=== PATIENT | male | born 1950 | race Caucasian/White ===

== ENCOUNTER 2020-04-28 21:14 | Emergency (ER) | payer BC ==
[2020-04-28] MEDS: Sodium Chloride 0.9% 10 ML Syringe FLUSH PRN ×3 (21:16→21:22)
[2020-04-28] MEDS ORDERED: EPINEPHrine 1:10,000 1 MG/10 ML Syringe IVPUSH ONE ×3 (21:16→21:22)
--- NOTE | 2020-04-29 17:06 | EDM.PDOC ---
ED HPI GENERAL MEDICAL PROBLEM - General Chief Complaint: CPR in Progress Stated Complaint: UNRESPONSIVE Time Seen by Provider: 04/28/20 21:15 Source of Information: Reports: EMS, Family History Limitations: Reports: No Limitations - History of Present Illness INITIAL COMMENTS - FREE TEXT/NARRATIVE: Patient is a 69 YO WM who was found unresponsive at about 1999 on 04/28/2020. He was apparently exercising in the basement and then the went upstairs 30 minutes later went downstairs and found Abdias unresponsive. She then called 911 and started CPR. EMS arrived at the scene 15 minutes later and patient was cyanotic and with a PEA heart rhythm . CPR, epinephrine, ans 1 shock was given en route to [facility] ED. When patient arrived in the ED he was on asystole, with fixed and dilated pupil. CPR, epinephrine, intubation was performed and resuscitation was continued for 30 more minutes. Total resuscitation effort was 1 hour from the time patient was found unresponsive. See [facility] notes for details of resuscitation in the ED, [employer] notes for intubation. 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: Reports: CPR, Intubation, IV/IO, Other Medication(s), Oxygen, See EMS Report, Other (see below) Other 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: 1shock, rTib-IO,NS 2epi - Related Data Allergies Allergy/AdvReac Type Severity Reaction Status Date / Time No Known Allergies Allergy Verified 09/18/14 09:09 Home Meds: Home Meds PARoxetine HCl [Paroxetine HCl] 20 mg PO DAILY 09/18/14 [History] ED ROS GENERAL - Review of Systems Review Of Systems: Unable To Obtain Reason Not Obtained: patient is unresponsive Constitutional: Reports: No Symptoms ED EXAM, CPR - Physical Exam Exam: See Below Limited By: Unresponsive General Appearance: Other Eye Exam: Bilateral Eye: Other (pupils are fexed,dilated, and non-reactive) Head: Atraumatic Respiratory Chest: Other (Absen BS, no spontaneous breathing) Cardiovascular: Other (Pulseless, no audible heart beat) GI/Abdominal Exam: Other (absent bowel sound) Extremities: Other (cold,clammy, cyanotic) Course - Vital Signs Text/Narrative:: see HPI for details of resuscitation - Orders/Labs/Meds Labs: Laboratory Tests 04/28/20 04/28/20 04/28/20 Range/Units 21:25 21:25 21:25 WBC 7.7 (3.2-10.1) x10-3/uL RBC 4.57 (3.90-5.90) x10(6)uL Hgb 13.0 (12.9-17.7) g/dL Hct 40.5 (38.3-50.1) % MCV 88.8 (80.8-98.7) fL MCH 28.5 (27.0-33.3) pg MCHC 32.1 (28.7-35.3) g/dL RDW 13.8 (12.4-15.0) % Plt Count 201 (117-477) x10(3)uL MPV 7.2 (6.7-11.0) fL Neut % (Auto) 27.3 L (40.3-71.8) % Lymph % (Auto) 65.1 H (15.8-45.3) % Luce % (Auto) 6.9 (5.5-15.2) % Eos % (Auto) 0.5 (0.1-6.8) % Baso % (Auto) 0.2 L (0.3-3.8) % Neut # (Auto) 2.1 (1.7-6.9) x10-3/uL Lymph # (Auto) 5.0 H (0.5-4.5) x10-3/uL Luce # (Auto) 0.5 (0.0-1.2) x10-3/uL Eos # (Auto) 0.0 (0.0-0.6) x10-3/uL Baso # (Auto) 0.0 (0.0-0.3) x10-3/uL PT (9.0-11.1) sec INR (1.00-1.24) APTT (24.4-33.2) SECONDS D-Dimer, Quantitative (0.0-0.59) mg/LFEU Sodium 144 (135-145) mmol/L Potassium 5.5 H D (3.5-5.3) mmol/L Chloride 103 (100-110) mmol/L Carbon Dioxide 23 (21-32) mmol/L BUN 13 (7-18) mg/dL Creatinine 1.1 (0.70-1.30) mg/dL Est Cr Clr Drug Dosing TNP Estimated GFR (MDRD) > 60 (>60) BUN/Creatinine Ratio 11.8 (9-20) Glucose 159 H (80-116) mg/dL Calcium 9.5 (8.6-10.2) mg/dL Total Bilirubin 0.9 (0.1-1.3) mg/dL AST 425 H* D (5-25) IU/L ALT 464 H* D (12-36) U/L Alkaline Phosphatase 60 (56-112) IU/L Troponin I 440.7 H* (4.0-60.3) pg/mL Total Protein 6.3 (6.0-8.0) g/dL Albumin 3.3 (3.2-4.6) g/dL Globulin 3.0 g/dL Albumin/Globulin Ratio 1.1 SARS-CoV-2 RNA (RADHA) (NEGATIVE) 04/28/20 04/28/20 Range/Units 21:25 21:39 WBC (3.2-10.1) x10-3/uL RBC (3.90-5.90) x10(6)uL Hgb (12.9-17.7) g/dL Hct (38.3-50.1) % MCV (80.8-98.7) fL MCH (27.0-33.3) pg MCHC (28.7-35.3) g/dL RDW (12.4-15.0) % Plt Count (117-477) x10(3)uL MPV (6.7-11.0) fL Neut % (Auto) (40.3-71.8) % Lymph % (Auto) (15.8-45.3) % Luce % (Auto) (5.5-15.2) % Eos % (Auto) (0.1-6.8) % Baso % (Auto) (0.3-3.8) % Neut # (Auto) (1.7-6.9) x10-3/uL Lymph # (Auto) (0.5-4.5) x10-3/uL Luce # (Auto) (0.0-1.2) x10-3/uL Eos # (Auto) (0.0-0.6) x10-3/uL Baso # (Auto) (0.0-0.3) x10-3/uL PT 12.0 H (9.0-11.1) sec INR 1.12 (1.00-1.24) APTT 30.4 (24.4-33.2) SECONDS D-Dimer, Quantitative (0.0-0.59) mg/LFEU Sodium (135-145) mmol/L Potassium (3.5-5.3) mmol/L Chloride (100-110) mmol/L Carbon Dioxide (21-32) mmol/L BUN (7-18) mg/dL Creatinine (0.70-1.30) mg/dL Est Cr Clr Drug Dosing Estimated GFR (MDRD) (>60) BUN/Creatinine Ratio (9-20) Glucose (80-116) mg/dL Calcium (8.6-10.2) mg/dL Total Bilirubin (0.1-1.3) mg/dL AST (5-25) IU/L ALT (12-36) U/L Alkaline Phosphatase (56-112) IU/L Troponin I (4.0-60.3) pg/mL Total Protein (6.0-8.0) g/dL Albumin (3.2-4.6) g/dL Globulin g/dL Albumin/Globulin Ratio SARS-CoV-2 RNA (RADHA) Negative (NEGATIVE) Meds: Medications Discontinued Medications Generic Name Dose Route Start Last Admin Trade Name Freq PRN Reason Stop Dose Admin Epinephrine HCl 1 mg 04/28/20 21:16 04/28/20 23:48 Epinephrine 1:10,000 IVPUSH 04/28/20 21:17 Not Given ONETIME ONE Epinephrine HCl 1 mg 04/28/20 21:22 04/28/20 21:16 Epinephrine 1:10,000 IVPUSH 04/28/20 21:23 1 mg ONETIME ONE Administration Epinephrine HCl 1 mg 04/28/20 21:22 04/28/20 21:22 Epinephrine 1:10,000 IVPUSH 04/28/20 21:23 1 mg ONETIME ONE Administration Sodium Chloride 10 ml 04/28/20 21:15 04/28/20 21:22 Saline Flush FLUSH 10 ml ASDIRECTED PRN Administration Keep Vein Open Departure - Departure Time of Disposition: 22:00 Disposition: 20 Preliminary Cause of *Q: Cardiac Arrest Condition: Good Clinical Impression: Acute GA - Discharge Information Referrals: PCP,None [Primary Care Provider] - Forms: ED Department Discharge Sepsis Event Note (ED) - Evaluation Sepsis Screening Result: No Definite Risk
== END 2020-04-28 21:21 | disposition expired ==
LOC: FB.ED 21:14
DX: I21.9 Acute myocardial infarction, unspecified (principal); Z20.828 Contact with and (suspected) exposure to other viral communicable diseases
CPT/HCPCS: 36415; 80053; 84484; 85025; 85379; 85610; 85730; 92950; 96374; 99284; 99285-25; J0171; U0002